=== PATIENT | male | born 1945 | race Caucasian/White ===

== ENCOUNTER 2020-10-28 06:44 | Day surgery (SDC) | payer MEDICARE ==
[2020-10-28] MEDS ORDERED: Sodium Chloride 0.9% 1,000 ML IV SCH (07:00)
[2020-10-28] MEDS ORDERED: Midazolam 1 MG/ML 2 ML SDV ONE (07:14)
[2020-10-28] MEDS ORDERED: fentaNYL 100 MCG/2 ML SDV ONE (07:14)
[2020-10-28] MEDS ORDERED: Propofol 200 MG/20 ML SDV ONE (07:15)
[2020-10-28 09:16] VITALS: BP 114/73
[2020-10-28 09:33] VITALS: PULSE 80
--- NOTE | 2020-10-28 10:29 | OR ---
DATE OF PROCEDURE: 10/28/2020 SURGEON: Reginald Guerrier MD PROCEDURE: Colonoscopy. FINDINGS: 1. Diverticulosis, mild, limited mostly to sigmoid colon. 2. Transverse colon polyp, approximately 8 mm, completely removed using hot snare wire device. COMPLICATIONS: None. SET UP PERSON: None. ANESTHESIA: MAC. PREOPERATIVE DIAGNOSIS: Screening colonoscopy. POSTOPERATIVE DIAGNOSIS: Screening colonoscopy. RISKS: Risks, benefits, alternatives, and limitations including, but not limited to infection, bleeding, perforation, false positives, false negatives were explained to the patient who wished to proceed. PROCEDURE IN DETAIL: The patient was placed in left lateral decubitus position. Digital rectal exam was performed without abnormality. Scope was introduced and advanced atraumatically to the ileocecal valve. A photo was taken of this. Scope was brought back to the ascending, transverse, descending colon, and retroflexed. The prep was acceptable, approximately 90% of the luminal surface could be seen. The aforementioned polyp was identified and completely removed. No abnormal bleeding was noted after removal. No colitis. No evidence of old or new blood. No abnormalities on retroflexion. Diverticulosis would be described as mild, limited to sigmoid colon without evidence of diverticulitis. The prep was acceptable with approximately 90% of the luminal surface could be seen. Greater than 8 minutes was spent removing the scope. The patient tolerated the procedure well. Reginald Guerrier MD /[id number]
== END 2020-10-28 10:05 | disposition home or self-care (01) ==
LOC: JP.SDS 06:44
PROVIDERS: ATTEND Surgery
DX: Z12.11 Encounter for screening for malignant neoplasm of colon (principal); D12.3 Benign neoplasm of transverse colon; K57.30 Diverticulosis of large intestine without perforation or abscess without bleeding; F17.200 Nicotine dependence, unspecified, uncomplicated
CPT/HCPCS: 45385; J2250; J2704; J3010; J7030; 88305

== ENCOUNTER 2021-08-13 13:18 | Emergency (ER) | payer MEDICARE, SELFPAY ==
--- NOTE | 2021-08-13 14:23 | EDM.PDOC ---
ED HPI GENERAL MEDICAL PROBLEM - General Chief Complaint: Genitourinary Problem Stated Complaint: CATHETER IN SUNDAY/POSSIBLE INFECTION Time Seen by Provider: 08/13/21 14:05 Source of Information: Reports: Patient, Old Records History Limitations: Reports: No Limitations - History of Present Illness INITIAL COMMENTS - FREE TEXT/NARRATIVE: 75 yo male had a pelaez catheter placed in the local [facility] earlier this week for BPH. Over the past couple of days he has developed gross hematuria, some urethral pain and some low back pain. No fever or nausea or chills. Is not on any anticoagulants. Onset: Gradual Onset Date: 08/10/21 Duration: Day(s):, Getting Worse Location: Reports: Pelvis Quality: Reports: Burning Severity: Mild Improves with: Reports: None Worsens with: Reports: Other (time) Context: Reports: Other (see HPI) Associated Symptoms: Reports: No Other Symptoms. 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 (see below) (none) - Related Data Allergies Allergy/AdvReac Type Severity Reaction Status Date / Time No Known Allergies Allergy Verified 08/13/21 14:50 Home Meds: Home Meds Tamsulosin [Tamsulosin 24 Hr] 0.4 mg PO BEDTIME 10/27/20 [History] amLODIPine [Norvasc] 5 mg PO DAILY 10/27/20 [History] Cholecalciferol (Vitamin D3) [Vitamin D] 25 mcg PO DAILY 10/28/20 [History] Nicotine Polacrilex [Nicorette] 2 mg PO ASDIRECTED PRN 02/03/21 [History] Nicotine [Nicotine Patch] 1 patch TOP Q24H 02/03/21 [History] lisinopriL [Lisinopril] 20 mg PO DAILY 02/03/21 [History] Past Medical History HEENT History: Reports: Hard of Hearing Cardiovascular History: Reports: Hypertension Genitourinary History: Reports: Prostate Disorder Musculoskeletal History: Reports: Fracture Neurological History: Reports: Seizure Endocrine/Metabolic History: Reports: Other (See Below) Other Endocrine/Metabolic History: thyroid nodule - Infectious Disease History Infectious Disease History: Reports: Chicken Pox, Measles, Mumps - Past Surgical History HEENT Surgical History: Reports: None Cardiovascular Surgical History: Reports: None GI Surgical History: Reports: Colonoscopy Male Surgical History: Reports: None Endocrine Surgical History: Reports: Thyroid Biopsy Neurological Surgical History: Reports: None Musculoskeletal Surgical History: Reports: None Dermatological Surgical History: Reports: None Social & Family History - Family History Family Medical History: No Pertinent Family History - Caffeine Use Caffeine Use: Reports: Coffee ED ROS GENERAL - Review of Systems Review Of Systems: See Below Constitutional: Reports: No Symptoms Respiratory: Reports: No Symptoms Cardiovascular: Reports: No Symptoms GI/Abdominal: Reports: No Symptoms : Reports: Hematuria, Other (urethral pain, low back pain) Musculoskeletal: Reports: Back Pain (low) Skin: Reports: No Symptoms ED EXAM, RENAL/ - Physical Exam Exam: See Below Exam Limited By: No Limitations General Appearance: Alert, WD/WN, No Apparent Distress, Thin Eye Exam: Bilateral Eye: Normal Inspection Ears: Normal Canal, Hearing Grossly Normal Nose: Normal Inspection, No Blood Throat/Mouth: Normal Inspection, Normal Lips, Normal Oropharynx, Normal Voice, No Airway Compromise Head: Atraumatic, Normocephalic Neck: Normal Inspection Respiratory/Chest: No Respiratory Distress, Lungs Clear, Normal Breath Sounds, No Accessory Muscle Use Cardiovascular: Regular Rate, Rhythm, No Edema GI/Abdominal: Soft, Non-Tender Back Exam: Normal Inspection. No: CVA Tenderness (R), CVA Tenderness (L) Extremities: Normal Inspection Neurological: Alert, Oriented, CN II-XII Intact, Normal Cognition, No Motor/Sensory Deficits Psychiatric: Normal Affect, Normal Mood Skin Exam: Warm, Dry, Intact, Normal Color, No Rash Course - Vital Signs Last Recorded V/S: Last Vital Signs Temp 36.7 C 08/13/21 14:51 Pulse 94 08/13/21 14:51 Resp 16 08/13/21 14:51 BP 138/79 08/13/21 14:51 Pulse Ox 97 08/13/21 14:51 - Orders/Labs/Meds Orders: Active Orders 24 hr Category Date Time Status CULTURE URINE [RM] Routine Lab 08/13/21 15:50 Results Labs: Laboratory Tests 08/13/21 Range/Units 13:18 Urine Color Yellow (YELLOW) Urine Appearance Slightly cloudy A (CLEAR) Urine pH 6.5 (5.0-8.0) Ur Specific [place] 1.015 (1.008-1.030) Urine Protein 30 H (NEGATIVE) mg/dL Urine Glucose (UA) Negative (NEGATIVE) mg/dL Urine Ketones Negative (NEGATIVE) mg/dL Urine Occult Blood Large H (NEGATIVE) Urine Nitrite Negative (NEGATIVE) Urine Bilirubin Negative (NEGATIVE) Urine Urobilinogen 0.2 (0.2-1.0) EU/dL Ur Leukocyte Esterase Small H (NEGATIVE) Urine RBC 20-30 H (0-5) Urine WBC 5-10 H (0-5) Ur Epithelial Cells Not seen Amorphous Sediment Not seen Urine Bacteria Moderate Urine Mucus Not seen Departure - Departure Time of Disposition: 14:55 Disposition: Home, Self-Care 01 Condition: Good Clinical Impression: Urethral irritation - Discharge Information *PRESCRIPTION DRUG MONITORING PROGRAM REVIEWED*: No *COPY OF PRESCRIPTION DRUG MONITORING REPORT IN PATIENT KANDACE: No Referrals: Vonda Valverde PARonenC [Primary Care Provider] - Forms: ED Department Discharge Additional Instructions: Acetaminophen prn. Try to avoid movement of catheter. Recheck as needed. - My Orders Last 24 Hours: My Active Orders 08/13/21 15:50 CULTURE URINE [RM] Routine - Assessment/Plan Last 24 Hours: My Active Orders 08/13/21 15:50 CULTURE URINE [RM] Routine
[2021-08-13 14:37] VITALS: BP 138/79; PULSE 94
== END 2021-08-13 16:05 | disposition home or self-care (01) ==
LOC: JP.ED 13:18
DX: N36.8 Other specified disorders of urethra (principal); I10 Essential (primary) hypertension; Z79.899 Other long term (current) drug therapy
CPT/HCPCS: 81001; 87086; 87088; 87186; 99283

== ENCOUNTER 2022-01-24 16:07 | Emergency (ER) | payer OTHER, MEDICARE ==
[2022-01-24] MEDS ORDERED: Sodium Chloride 0.9% 10 ML Syringe FLUSH PRN (16:41)
[2022-01-24] MEDS ORDERED: Ondansetron 4 MG/2 ML SDV IVPUSH ONE (16:43)
[2022-01-24] MEDS ORDERED: Sodium Chloride 0.9% 1,000 ML IV SCH (16:45)
[2022-01-24 17:27] VITALS: BP 117/58; PULSE 75
== END 2022-01-24 18:40 | disposition home or self-care (01) ==
LOC: JP.ED 16:07
DX: R55 Syncope and collapse (principal); I10 Essential (primary) hypertension; N40.0 Benign prostatic hyperplasia without lower urinary tract symptoms; Z79.899 Other long term (current) drug therapy; Z72.0 Tobacco use
CPT/HCPCS: 36415; 84484; 85379; 85651; 86140; 93005; 93010; 96374; 99283; 99284-25; J2405; J3490; J7030